=== PATIENT | female | born 1960 | race Caucasian/White ===

== ENCOUNTER 2017-09-21 14:49 | Emergency (ER) | payer MEDICAID ==
[~2017-09-21] VITALS: Ht 157.5 cm; Wt 69.6 kg
[2017-09-21 14:53] VITALS: BP 178/115
[2017-09-21] MEDS ORDERED: DIAZEPAM 5 MG TABLET PO ONE (15:30)
[2017-09-21] MEDS ORDERED: KETOROLAC 30 MG/1 ML IM ONE (15:30)
[2017-09-21 16:30] LABS: CULTURE INDICATED? YES; MICROSCOPIC INDICATED
[2017-09-21] MEDS ORDERED: KETOROLAC 30 MG/1 ML IVPush ONE (16:30)
== END 2017-09-21 17:36 | disposition home or self-care (01) ==
LOC: ED 17:35
DX: G44.319 Acute post-traumatic headache, not intractable (principal); M54.5 Low back pain; G89.29 Other chronic pain; J44.9 Chronic obstructive pulmonary disease, unspecified; I10 Essential (primary) hypertension
CPT/HCPCS: 72110; 81001; 87086; 96374; 99285; J1885

== ENCOUNTER 2018-01-05 14:48 | Emergency (ER) | payer MEDICAID ==
[~2018-01-05] VITALS: Ht 167.6 cm; Wt 69.0 kg
[2018-01-05] MEDS ORDERED: SODIUM CHLORIDE FLUSH 10ML SYR IVF ONE (15:00)
[2018-01-05 15:29] LABS: BASOPHILS # (AUTO) 0.05 x10^3/uL (0-0.1); BASOPHILS % (AUTO) 1 % (0-1); EOSINOPHILS # (AUTO) 0.14 x10^3/uL (0-0.4); EOSINOPHILS % (AUTO) 2 % (1-7); LYMPHOCYTES # (AUTO) 3.14 x10^3/uL (1-3.4); LYMPHOCYTES % (AUTO) 32 % (22-44); MD NO; MEAN CORPUSCULAR HEMOGLOBIN 30.9 pg (27.0-34.8); MEAN CORPUSCULAR HGB CONC 34.1 g/dL (32.4-35.8); MEAN CORPUSCULAR VOLUME 90.6 fL (80-100); MEAN PLATELET VOLUME 9.3 fL (7.4-10.4); MONOCYTES # (AUTO) 0.61 x10^3/uL (0.2-0.8); MONOCYTES % (AUTO) 6 % (2-9); NEUTROPHILS # (AUTO) 6.03 x10^3/uL (1.8-6.8); NEUTROPHILS % (AUTO) 60 % (42-75); PLATELET COUNT 288 x10^3/uL (130-400); RED BLOOD COUNT 5.09 x10^6/uL (3.82-5.3); RED CELL DISTRIBUTION WIDTH 15.3 % (9.6-15.2)
[2018-01-05 15:43] LABS: ALANINE AMINOTRANSFERASE 31 U/L (12-78); ALBUMIN 4.7 g/dL (3.4-5.0); ANION GAP 7 mmol/L (5-15); CALCIUM 9.3 mg/dL (8.5-10.1); CHLORIDE 109 mmol/L (98-107); CREATININE 1.13 mg/dL (0.55-1.02)
[2018-01-05 15:44] LABS: ALKALINE PHOSPHATASE 57 U/L (45-117); BILIRUBIN,TOTAL 0.8 mg/dL (0.2-1.0); TOTAL PROTEIN 8.9 g/dL (6.4-8.2)
[2018-01-05] MEDS ORDERED: MECLIZINE CHEWABLE 25 MG TAB ONE (16:30)
[2018-01-05] MEDS ORDERED: MECLIZINE CHEWABLE 25 MG TAB PO ONE (16:30)
[2018-01-05 17:07] LABS: FREE T4 (FREE THYROXINE) 0.61 ng/dL (0.76-1.46); THYROID STIMULATING HORMONE 78.5 mIU/L (0.358-3.740)
[2018-01-05 17:49] VITALS: BP 111/70
== END 2018-01-05 17:51 | disposition home or self-care (01) ==
LOC: ED 17:45
DX: E03.9 Hypothyroidism, unspecified (principal); R42 Dizziness and giddiness; E78.5 Hyperlipidemia, unspecified; I10 Essential (primary) hypertension; J44.9 Chronic obstructive pulmonary disease, unspecified; F17.210 Nicotine dependence, cigarettes, uncomplicated
CPT/HCPCS: 36415; 71045; 80053; 84439; 84443; 85025; 93005; 99285

== ENCOUNTER 2019-03-03 10:09 | Emergency (ER) | payer MEDICAID ==
[~2019-03-03] VITALS: Ht 157.5 cm; Wt 68.0 kg
[2019-03-03 10:13] VITALS: BP 132/82
--- NOTE | 2019-03-03 10:40 | NUR ---
NURSING TECH: PT AMBULATORY TO ROOM FROM LOBBY
== END 2019-03-03 11:54 | disposition home or self-care (01) ==
LOC: ED 11:40
DX: J44.1 Chronic obstructive pulmonary disease with (acute) exacerbation (principal); F17.210 Nicotine dependence, cigarettes, uncomplicated; J44.9 Chronic obstructive pulmonary disease, unspecified; I10 Essential (primary) hypertension; E03.9 Hypothyroidism, unspecified; E78.5 Hyperlipidemia, unspecified; E11.9 Type 2 diabetes mellitus without complications; Z90.49 Acquired absence of other specified parts of digestive tract
CPT/HCPCS: 71046; 93005; 99283; 99406

== ENCOUNTER 2019-12-22 10:06 | Emergency (ER) | payer MEDICAID ==
[~2019-12-22] VITALS: Ht 154.9 cm; Wt 66.3 kg
[2019-12-22 10:14] VITALS: BP 128/83
[2019-12-22] MEDS ORDERED: HYDROcodone/APAP 5/325 TABLET PO ONE (10:30)
[2019-12-22] MEDS ORDERED: HYDROcodone/APAP 5/325 TABLET ONE (10:57)
== END 2019-12-22 12:24 | disposition home or self-care (01) ==
LOC: ED 12:10
DX: S82.65XA Nondisplaced fracture of lateral malleolus of left fibula, initial encounter for closed fracture (principal); S93.492A Sprain of other ligament of left ankle, initial encounter; E03.9 Hypothyroidism, unspecified; I10 Essential (primary) hypertension; E11.9 Type 2 diabetes mellitus without complications; J44.9 Chronic obstructive pulmonary disease, unspecified; V19.9XXA Pedal cyclist (driver) (passenger) injured in unspecified traffic accident, initial encounter; Y93.89 Activity, other specified; Y92.488 Other paved roadways as the place of occurrence of the external cause; Y99.8 Other external cause status
CPT/HCPCS: 99283